=== PATIENT | female | born 1980 | race Caucasian/White ===

== ENCOUNTER 2018-02-02 13:16 | Emergency (ER) | payer OTHER ==
[2018-02-02 13:29] VITALS: TEMP 98.4
[2018-02-02] MEDS ORDERED: NS 1,000 ML IV ONE (13:44)
--- NOTE | 2018-02-02 13:48 | EDPHY ---
H & P Time Seen by Provider: 02/02/18 13:26 HPI/ROS: CHIEF COMPLAINT: Seizure HISTORY OF PRESENT ILLNESS: 37-year-old female presents after a generalized seizure. She was running with some friends just prior to arrival when she began to feel dizzy. She turned around to get something to drink, felt more dizzy and then fell to the ground. Generalized seizure activity when she fell to the ground. She recalls waking up in the ambulance and felt somewhat confused. She has a history of a prior seizure in 2012 while training for a marathon. At that time, she was running a lot and had a similar episode of syncope/seizure while running. She was seen by a neurologist and evaluation was normal, including CT scan of the brain and EEG. She was cleared to run the marathon a couple of weeks later. During the marathon, she had a recurrent episode of dizziness and fell to the ground, but did not faint or have a seizure. She was given 2 L of IV fluids and felt back to normal. She also has a history of anorexia/bulimia, but this has been under control for many years. This morning she had a cup of coffee and ate some almonds, but has not eaten lunch yet. Last menstrual. 2 weeks ago and regular. REVIEW OF SYSTEMS: Constitutional: No fever, no chills Eyes: No visual changes ENT: No sore throat Respiratory: No cough, no shortness of breath Cardiac: No chest pain Gastrointestinal: No nausea, no vomiting, no abdominal pain Genitourinary: no dysuria Musculoskeletal: No leg pain or swelling Skin: No rash Neurological: Slight headache Psychiatric: No depression Past Medical/Surgical History: History of anorexia/bulimia, under control now Prior seizure/syncope Social History: No recent alcohol Smoking Status: Never smoked Physical Exam: General Appearance: Alert, pleasant Eyes: Pupils equal and round, no conjunctival pallor or injection ENT, Mouth: Mucous membranes moist Neck: Normal inspection Respiratory: Lungs are clear to auscultation Cardiovascular: Regular rate and rhythm Gastrointestinal: Abdomen is soft and nontender Neurological: Alert, oriented x3, cranial nerves II through XII intact, motor 5 /5, sensory intact to light touch Skin: Warm and dry, no rash Extremities: Normal inspection Psychiatric: Mood and affect normal Constitutional: Initial Vital Signs Temperature (C) 36.9 C 02/02/18 13:21 Heart Rate 95 04/04/18 13:21 Respiratory Rate 20 02/02/18 13:21 Blood Pressure 139/91 H 02/02/18 13:21 O2 Sat (%) 97 02/02/18 13:21 O2 Delivery Mode Room Air Allergies/Adverse Reactions: No Known Allergies Allergy (Unverified 02/02/18 13:24) Home Medications: Medication Instructions Recorded NK [No Known Home Meds] 02/02/18 Medical Decision Making - Diagnostics EKG Interpretation: EKG interpreted by me reveals normal sinus rhythm, rate 80, T-wave inversions in leads V3 and V4. ED Course/Re-evaluation: This patient presents after a generalized seizure. Unclear whether this was a primary seizure or syncope with related seizure-like activity. Stat EKG reveals no evidence of ischemia or dysrhythmia. Echocardiogram ordered because of exertional syncope/seizure and is unremarkable. Discussed with Dr. Terrell at [facility], will follow up with the patient in the office. The patient has also been referred to Neurology as an outpatient. She was instructed not to exert herself until she is cleared by the director of strategy & mobile and neurologist. In addition she understands that she should not drive or otherwise put herself/ others at risk until she is cleared. Pt asymptomatic during ED stay. Neuro exam normal on serial exams. teletypesetter monitor: NSR throughout ED stay. Understands need for prompt f/u. Differential Diagnosis: Differential diagnosis includes though it is not limited to status epilepticus, hypoglycemia, intracranial hemorrhage, CVA, benzodiazepine withdrawal, alcohol withdrawal, epilepsy, structural heart disease, dysrhythmia. - Data Points Laboratory Results: Laboratory Results 02/02/18 13:30 02/02/18 13:30 Medications Given: Discontinued Medications Diphtheria/Tetanus/Acell Pertussis (Boostrix) 0.5 ml IM .ONCE ONE Stop: 02/02/18 14:59 Last Admin: 02/02/18 15:02 Dose: 0.5 ml Sodium Chloride (Ns) 1,000 mls @ 0 mls/hr IV EDNOW ONE; Wide Open PRN Reason: Protocol Stop: 02/02/18 13:45 Last Admin: 02/02/18 13:59 Dose: 1,000 mls Departure - Departure Disposition: Home, Routine, Self-Care Clinical Impression: Seizure Condition: Good Instructions: Recurrent Seizures in Adults (ED) Additional Instructions: 1. No driving until you are cleared by a neurologist to drive. No running until you are cleared by cardiology. 2. No dangerous activities such as riding a ski lift, swimming in a pool or other behavior that could put you or someone else at risk in the event of a recurrent seizure. You will need to be cleared by a neurologist to resume these activities. 3. Please return to the ED for recurrent seizure, headache, numbness, weakness, altered mental status or other concerns. 4. Please call the referral neurologist promptly to schedule a follow-up appointment. Referrals: Alessia Terrell MD [Medical Doctor] - As per Instructions (Call to make an appointment at [facility].) Alfonso Fuller DO [Medical Doctor] - As per Instructions (Call to make an appointment.)
[2018-02-02 13:49] LABS: PLATELET COUNT 358 10^3/uL (150-400)
--- NOTE | 2018-02-02 14:02 | CPEKG ---
Heart Rate: 80 RR Interval: 750 P-R Interval: 164 QRSD Interval: 82 QT Interval: 388 QTC Interval: 448 P Girard: 37 QRS Girard: 59 T Wave Girard: 22 EKG Severity - NORMAL ECG - EKG Impression: SINUS RHYTHM Electronically Signed By: Nelda Leonard 02-Feb-2018 21:08:08
[2018-02-02 14:29] VITALS: PULSE 76; RESP 16
[2018-02-02] MEDS ORDERED: TDAP ADULT 0.5 ML INJ (BOOSTRIX) IM ONE (14:58)
[2018-02-02 15:04] VITALS: BP 120/83; O2SAT 96
--- NOTE | 2018-02-02 15:16 | ECHO ---
[email or web address] [address] [address] Main: [phone] Fax: Transthoracic Echocardiogram Name: LANDRY BRANTLEY MR#: [id number] Study Date: 02/02/2018 Study Time: 02:15 PM Date of : 1980 Age: 37 year(s) Height: 162.6 cm (64 in.) Weight: 54.43 kg (120 lb.) BSA: 1.57 m2 Gender: Female Examination: Echo Indication: Exertional syncope/seizure Image Quality: Contrast: Requested by: Nelda Leonard BP: 119 mmHg/89 mmHg Heart Rate: Rhythm: Indication: Exertional syncope/seizure Procedure Staff Rn Psychiatric: Mili Viveros RDCS Reading Physician: Alessia Terrell MD Requesting Provider: Conclusions: Normal size left ventricle. No LV hypertrophy. Global hypercontractility of the left ventricle. The ejection fraction is estimated to be 70-75 %. No regional wall motion abnormality. Normal size right ventricle. Normal RV function. There is no previous echocardiogram for comparison. No signficant valvular disease Measurements: Chambers Valvular Assessment AV/MV Valvular Assessment TV/PV Normal Normal Normal Name Value Range Name Value Range Name Value Range Ao Alisa (MM): 2.7 cm (2.2 cm-3.7 AV Vmax: 1.65 m/s (1 m/s-1.7 cm) m/s) IVSd (2D): 0.7 cm (0.6 cm-1.1 AV maxP mmHg ( - ) cm) AV meanP mmHg ( - ) LVDd (2D): 4.7 cm (3.9 cm-5.3 MV E Vmax: 0.94 m/s ( - ) cm) MV A Vmax: 0.56 m/s ( - ) LVDs (2D): 2.2 cm (2.1 cm-4 MV E/A: 1.68 ( - ) cm) LVPWd (2D): 0.9 cm ( - ) LVEF (MOD4): 78 % (>=55 %) EF Range: 70-75 % Continued Measurements: Chambers Valvular Assessment AV/MV Patient: LANDRY BRANTLEY Study Date: 02/02/2018 Page 1 of 2 02:15 PM Name Value Name Value LADs: 3.5 cm MV E/E' Septal: 8.70 LADs Lon.3 cm MV E/E' Lateral: 5.60 LA Area: 18.4 cm2 Findings: Left Ventricle: Normal size left ventricle. No LV hypertrophy. Global hypercontractility of the left ventricle. The ejection fraction is estimated to be 70-75 %. No regional wall motion abnormality. Right Ventricle: Normal size right ventricle. Normal RV function. Left Atrium: The left atrium is normal in size. Right Atrium: The right atrium is normal in size. Mitral Valve: The mitral valve is normal in appearance and function. Trivial mitral valve regurgitation. Aortic Valve: The aortic valve is normal in appearance and function. Tricuspid Valve: The tricuspid valve is normal in appearance and function. Pulmonic Valve: The pulmonic valve is normal in appearance and function. Aorta: The aorta is normal. Pericardium: No pericardial effusion. (No Signature Object) Patient: LANDRY BRANTLEY Study Date: 02/02/2018 Page 2 of 2 02:15 PM [id number]
== END 2018-02-02 15:26 | disposition home or self-care (01) ==
DX: G40.909 Epilepsy, unspecified, not intractable, without status epilepticus (principal); E86.9 Volume depletion, unspecified; Z23 Encounter for immunization
CPT/HCPCS: 96374

== ENCOUNTER → 2018-02-21 | Outpatient (CLI) | payer OTHER | LOC: FIMAGING 18:33 | PROVIDERS: ATTEND Psychiatry & Neurology Neurology | DX: R40.20 Unspecified coma (principal) ==

== ENCOUNTER → 2018-03-07 | Outpatient (CLI) | payer OTHER ==
--- NOTE | 2018-03-08 14:26 | CPEEG ---
[f rep st] ELECTROENCEPHALOGRAM 4-HOUR VIDEO ELECTROENCEPHALOGRAM. DATES OF STUDY: Date of study: March 07, 2018. DATE OF INTERPRETATION: March 08, 2018 INTERPRETATION: This 4-hour video EEG recording is normal. There were no potentially epileptogenic abnormalities present during the awake or sleep recordings. During the video EEG monitoring session, the patient denied any clinical events. REPORT: This 4-hour video EEG contains 10 Hz alpha activity to the posterior head regions. There wa s no abnormal activation at rest, during photic stimulation or hyperventilation. The patient became drowsy and fell into sustained sleep during the study. There was no abnormal activation during drows iness, sleep, or during times of arousal. The patient did not have any clinical events during the vi ninfa EEG monitoring session. /[id number]/MODL
== END ==
LOC: FCPNEURO 07:46
PROVIDERS: ATTEND Psychiatry & Neurology Neurology
DX: R40.20 Unspecified coma (principal)